=== PATIENT | male | born 2005 | race Hispanic/Latino ===

== ENCOUNTER 2025-07-09 09:35 | Emergency (ER) | payer SELFPAY ==
[~2025-07-09] VITALS: Ht 182.9 cm; Wt 132.4 kg
[2025-07-09 09:43] VITALS: PULSE 78; RESP 19; TEMP 97.7
[2025-07-09] MEDS: IBUPROFEN 400 MG TAB PO STA (10:07)
[2025-07-09 11:10] VITALS: BP 130/85; PULSE 64; RESP 18; TEMP 98.2; O2SAT 98
== END 2025-07-09 11:16 | disposition home or self-care (01) ==
LOC: FSED 09:47
DX: M25.572 Pain in left ankle and joints of left foot (principal); S93.492A Sprain of other ligament of left ankle, initial encounter; M76.62 Achilles tendinitis, left leg; F17.210 Nicotine dependence, cigarettes, uncomplicated
CPT/HCPCS: 99283